=== PATIENT | male | born 1980 | race Caucasian/White ===

== ENCOUNTER 2018-12-27 21:54 | Inpatient (IN) | payer OTHER ==
[~2018-12-27] VITALS: Ht 167.6 cm; Wt 77.8 kg
[2018-12-27] MEDS ORDERED: PARO20TA24 PO (22:27)
[2018-12-27] MEDS ORDERED: MIRT30 PO (22:27)
[2018-12-27 22:57] LABS: BASOPHILS % (AUTO) 0.9 % (0.0-2.0); HEMATOCRIT 38.6 % (41-53); HEMOGLOBIN 12.7 g/dL (13.5-17.5); LYMPHOCYTES # (AUTO) 2.9 K/uL (1.0-4.8); LYMPHOCYTES % (AUTO) 31.3 % (22.0-44.0); MEAN CORPUSCULAR HEMOGLOBIN 30.6 pg (26.0-34.0); MEAN CORPUSCULAR HGB CONC 32.9 G/dL (31.0-37.0); MEAN CORPUSCULAR VOLUME 93 fL (80-100); MONOCYTES # (AUTO) 0.8 K/uL (0.1-1.0); MONOCYTES % (AUTO) 8.8 % (2.0-9.0); NEUTROPHILS # (AUTO) 4.8 K/uL (1.8-7.7); PLATELET COUNT (AUTO) 283 K/uL (150-450); RED BLOOD CELL COUNT(AUTO) 4.15 MIL/uL (4.50-5.90); RED CELL DISTRIBUTION WIDTH 13.2 % (11.5-14.5)
[2018-12-27 23:07] LABS: ANION GAP 6 mmol/L (8-16); CALCIUM, TOTAL 9.1 mg/dL (8.8-10.5); CARBON DIOXIDE 29 mmol/L (22-29); CHLORIDE 103 mmol/L (98-107); CREATININE 0.94 mg/dL (0.60-1.30); GLOMERULAR FILTR. RATE CALC > 60 mL/min (>60); GLUCOSE,RANDOM 104 mg/dL (70-110); POTASSIUM 3.9 mmol/L (3.5-5.1); SODIUM SERUM 138 mmol/L (136-145); UREA NITROGEN, BLOOD 17 mg/dL (7-18)
[2018-12-27 23:13] LABS: ALANINE AMINOTRANSFERASE 13 U/L (12-78); ALBUMIN 3.6 g/dL (3.4-5.0); ALKALINE PHOSPHATASE 61 U/L (46-116); ASPARTATE AMINOTRANSFERASE 22 U/L (15-37); BILIRUBIN,TOTAL 0.3 mg/dL (0.1-1.0)
[2018-12-28 00:07] LABS: AMPHET/METH SCREEN,URINE POSITIVE (NEGATIVE); BARBITURATE SCREEN, URINE NEGATIVE (NEGATIVE); BENZODIAZEPINES SCREEN,URINE NEGATIVE (NEGATIVE); CANNABINOID SCREEN,URINE NEGATIVE (NEGATIVE); COCAINE SCREEN,URINE NEGATIVE (NEGATIVE); METHADONE SCREEN, URINE NEGATIVE (NEGATIVE); OPIATE SCREEN,URINE NEGATIVE (NEGATIVE)
[2018-12-28 00:08] LABS: PHENCYCLIDINE SCREEN,URINE NEGATIVE (NEGATIVE)
[2018-12-28] MEDS ORDERED: ACETAMINOPHEN 325 MG TABLET PO PRN ×2 (02:00→23:15)
[2018-12-28] MEDS ORDERED: ONDANSETRON HCL 4 MG/2 ML VIAL IVP PRN ×2 (02:00→23:15)
[2018-12-28 02:40] VITALS: BP 100/58
[2018-12-28] MEDS: PARoxetine HCL 20 MG TABLET PO SCH (09:00)
[2018-12-28 11:43] VITALS: BP 111/64
[2018-12-28 16:20] VITALS: BP 105/67
[2018-12-28 19:59] VITALS: BP 128/73
[2018-12-28] MEDS ORDERED: ALBUTEROL SULFATE 2.5 MG/0.5 ML NEB SOLUTION NEB PRN (23:15)
[2018-12-28] MEDS ORDERED: BISACODYL 10 MG RECTAL RECTAL SUPPOSITORY PR PRN (23:15)
[2018-12-28] MEDS ORDERED: ZOLPIDEM TARTRATE 5 MG TABLET PO PRN (23:15)
[2018-12-28] MEDS ORDERED: MAGNESIUM HYDROXIDE SUSPENSION 30 ML UDCUP PO PRN (23:15)
[2018-12-28] MEDS ORDERED: IPRATROPIUM BROMIDE 0.5 MG/2.5 ML NEB SOLUTION NEB PRN (23:15)
[2018-12-28 23:47] VITALS: BP 127/67
[2018-12-29] MEDS: HEPARIN SODIUM,PORCINE 5,000 UNITS/ML VIAL SQ SCH ×4 (00:06→23:44)
[2018-12-29 04:00] VITALS: BP 112/62
[2018-12-29 07:52] VITALS: BP 111/67
[2018-12-29] MEDS: PARoxetine HCL 20 MG TABLET PO SCH (09:06)
[2018-12-29] MEDS: DOCUSATE SODIUM 100 MG CAPSULE PO SCH ×2 (09:06→20:10)
[2018-12-29] MEDS: OLANZapine 5 MG TABLET PO SCH ×2 (10:52→20:10)
[2018-12-29] MEDS: SERTRALINE HCL 50 MG TABLET PO SCH (10:52)
[2018-12-29 11:24] VITALS: BP 117/72
[2018-12-29 15:06] VITALS: BP 104/68
[2018-12-29 19:51] VITALS: BP 117/66
[2018-12-29] MEDS: TraZODone HCL 50 MG TABLET PO SCH (20:10)
[2018-12-29 23:54] VITALS: BP 99/44
[2018-12-30 04:00] VITALS: BP 114/53
[2018-12-30 07:29] VITALS: BP 96/57
[2018-12-30] MEDS: DOCUSATE SODIUM 100 MG CAPSULE PO SCH ×2 (08:27→20:29)
[2018-12-30] MEDS: OLANZapine 5 MG TABLET PO SCH ×2 (08:27→20:29)
[2018-12-30] MEDS: SERTRALINE HCL 50 MG TABLET PO SCH (08:27)
[2018-12-30] MEDS: HEPARIN SODIUM,PORCINE 5,000 UNITS/ML VIAL SQ SCH ×3 (08:27→23:50)
[2018-12-30 11:27] VITALS: BP 98/53
[2018-12-30 15:34] VITALS: BP 112/63
[2018-12-30 19:40] VITALS: BP 114/61
[2018-12-30] MEDS: TraZODone HCL 50 MG TABLET PO SCH (20:29)
[2018-12-30 23:25] VITALS: BP 110/60
[2018-12-31 04:30] VITALS: BP 95/58
[2018-12-31 07:39] VITALS: BP 115/59
[2018-12-31] MEDS: HEPARIN SODIUM,PORCINE 5,000 UNITS/ML VIAL SQ SCH ×3 (08:25→23:13)
[2018-12-31] MEDS: OLANZapine 5 MG TABLET PO SCH ×2 (08:25→19:49)
[2018-12-31] MEDS: SERTRALINE HCL 50 MG TABLET PO SCH (08:25)
[2018-12-31] MEDS: DOCUSATE SODIUM 100 MG CAPSULE PO SCH ×2 (08:25→19:49)
[2018-12-31 11:27] VITALS: BP 102/63
[2018-12-31 16:53] VITALS: BP 106/60
[2018-12-31 19:42] VITALS: BP 112/69
[2018-12-31] MEDS: TraZODone HCL 50 MG TABLET PO SCH (19:49)
[2018-12-31 23:10] VITALS: BP 96/60
[2019-01-01 05:10] VITALS: BP 102/61
[2019-01-01 07:49] VITALS: BP 111/56
[2019-01-01] MEDS: OLANZapine 5 MG TABLET PO SCH ×2 (08:48→20:17)
[2019-01-01] MEDS: SERTRALINE HCL 50 MG TABLET PO SCH (08:48)
[2019-01-01] MEDS: DOCUSATE SODIUM 100 MG CAPSULE PO SCH ×2 (08:49→20:17)
[2019-01-01] MEDS: HEPARIN SODIUM,PORCINE 5,000 UNITS/ML VIAL SQ SCH ×3 (08:49→23:43)
[2019-01-01 12:04] VITALS: BP 102/60
[2019-01-01 15:44] VITALS: BP 103/59
[2019-01-01 20:07] VITALS: BP 115/60
[2019-01-01] MEDS: TraZODone HCL 50 MG TABLET PO SCH (20:17)
[2019-01-01 23:42] VITALS: BP 92/46
[2019-01-02 05:36] VITALS: BP 98/53
[2019-01-02 07:35] VITALS: BP 115/56
[2019-01-02] MEDS: SERTRALINE HCL 50 MG TABLET PO SCH (07:58)
[2019-01-02] MEDS: OLANZapine 5 MG TABLET PO SCH ×2 (07:58→20:08)
[2019-01-02] MEDS: DOCUSATE SODIUM 100 MG CAPSULE PO SCH ×2 (07:58→20:08)
[2019-01-02] MEDS: HEPARIN SODIUM,PORCINE 5,000 UNITS/ML VIAL SQ SCH ×3 (07:58→23:10)
[2019-01-02 11:39] VITALS: BP 98/56
[2019-01-02 15:58] VITALS: BP 110/72
[2019-01-02 20:01] VITALS: BP 108/60
[2019-01-02] MEDS: TraZODone HCL 50 MG TABLET PO SCH (20:08)
[2019-01-03 00:02] VITALS: BP 91/52
[2019-01-03 05:38] VITALS: BP 107/60
[2019-01-03 07:45] VITALS: BP 92/50
[2019-01-03] MEDS: HEPARIN SODIUM,PORCINE 5,000 UNITS/ML VIAL SQ SCH (08:04)
[2019-01-03] MEDS: OLANZapine 5 MG TABLET PO SCH (08:04)
[2019-01-03] MEDS: SERTRALINE HCL 50 MG TABLET PO SCH (08:04)
[2019-01-03] MEDS: DOCUSATE SODIUM 100 MG CAPSULE PO SCH (08:04)
[2019-01-03] MEDS ORDERED: SERT50TA12 PO (09:28)
[2019-01-03] MEDS ORDERED: OLAN5TAB2 PO (09:28)
[2019-01-03] MEDS ORDERED: TRAZ-252 PO (09:37)
[2019-01-03 11:13] VITALS: BP 109/69
== END 2019-01-03 12:40 | DRG 885 ==
LOC: EMS 21:56 → 6S 12-28 01:50
PROVIDERS: ADMIT Hospitalist; ATTEND Hospitalist
DX: F25.1 Schizoaffective disorder, depressive type (principal); R45.851 Suicidal ideations; F15.20 Other stimulant dependence, uncomplicated; F43.10 Post-traumatic stress disorder, unspecified; F32.9 Major depressive disorder, single episode, unspecified; F41.9 Anxiety disorder, unspecified; Z79.899 Other long term (current) drug therapy
CPT/HCPCS: G0480; J1644